=== PATIENT | male | born 1960 | race Caucasian/White ===

== ENCOUNTER 2022-04-24 06:55 | Day surgery (SDC) | payer OTHER ==
[~2022-04-24] VITALS: Ht 175.3 cm; Wt 134.0 kg
[~2022-04-24 06:55] MED LIST: 24 HOUR ALLER15.8 ML NAS; ACETAMINOPHEN325 M1 PO; AMITRIPTYLINE H25 MG PO; BUPRENORPHINE1 EAC2 TD; CLOBETASOL PROP50 GM TOP; CYMBALTA60 MG PO; DOC-Q-LAX TABL1 EACH PO; ENOXAPARIN40 MG/0.4 SUB-Q; FENOFIBRATE134 MG PO; FOLIC ACID1 MG PO; HYDROCODON-ACE1 EAC8 PO; LISINOPRIL20 MG PO; MELOXICAM15 MG PO; METFORMIN HCL500 M2 PO; METHOTREXATE2.5 MG PO; MICROZIDE12.5 MG PO; NIACIN500 M1 PO; NORCO 5-325 TA1 EACH PO; NUCYNTA ER250 MG PO; OXYCODONE HCL5 MG PO
--- NOTE | 2022-04-24 09:32 | NUR ---
04/24/22 0932 Niki Olivier PT TO PACU AWAKE AND ALERT DENIES PAIN AND NAUSEA.
--- NOTE | 2022-04-25 12:36 | OR ---
[facility] [address], [place] [address] Signed DATE OF OPERATION: 04/24/2022 SURGEON: Hollie Jaimes MD PREOPERATIVE DIAGNOSIS: History of tubular adenoma of cecum 2017. POSTOPERATIVE DIAGNOSES: 1. Small flat polyp rectum (excised). 2. Minimal diverticula. PROCEDURE: Total colonoscopy to cecum with cold morcellation polypectomy x1. ANESTHESIA: Intravenous sedation; fentanyl 100 mcg and Versed 10 mg. INDICATION: This 62-year-old white man is a patient of TOAN Quintanilla. He underwent colonoscopy by me in 2017, at which time he was found to have a tubular adenoma of the cecum. He is asymptomatic currently. He has no family history of colon cancer. He is here for surveillance colonoscopy. He understands the risk of bleeding, infection, and perforation. FINDINGS: The prep was good. Complete colonoscopy was undertaken to the cecum without question. He had one small flat polyp of the rectum, which was excised with cold morcellation technique. There were few scattered diverticula, but no other findings of concern. DESCRIPTION OF PROCEDURE: The patient was brought to the endoscopy suite and placed in the lateral decubitus position, given intravenous sedation a point of slurred speech and nystagmus. Digital rectal examination was normal. An Olympus video colonoscope was passed in the rectum and manipulated throughout the colon noting a few diverticula along the way. The scope was ultimately passed to the cecum. The ileocecal valve and appendiceal orifice were normal with no evidence of recurrent or persistent polyp. The scope was then withdrawn and examination throughout showed no sign of abnormality other than a few scattered diverticula. In the rectum, there was an area of mucosal thickening and with narrow band imaging suggestive of a Electronically Signed By: HOLLIE JAIMES MD 04/25/22 1236 PATIENT NAME: PAGE BAÑUELOS OPERATIVE REPORT DATE OF : 60 REPORT #: [id number] PHYSICIAN: HOLLIE JAIMES MD PCP: DIANE MACHADO REPORT IS CONFIDENTIAL AND NOT TO BE RELEASED WITHOUT AUTHORIZATION [facility] [address], [place] [address] Signed flat polyp. It was small. It was excised with cold morcellation technique completely. Further withdrawal showed no other abnormality including retroflexed view. The scope was removed and the patient was taken to the recovery room in good condition. CONCLUDING DIAGNOSIS: Scattered diverticula and small flat rectal polyp. PLAN: Recommend repeat colonoscopy in 5 to 7 years, sooner if clinically indicated. He will return to the ongoing care of TOAN Quintanilla. MD SEBAS Fernandes/CATHY /[id number] cc: TOAN Quintanilla Copies: DIANE MACHADO ~ Electronically Signed By: HOLLIE JAIMES MD 04/25/22 1236 PATIENT NAME: PAGE BAÑUELOS OPERATIVE REPORT DATE OF : 60 REPORT #: [id number] PHYSICIAN: HOLLIE JAIMES MD PCP: DIANE MACHADO REPORT IS CONFIDENTIAL AND NOT TO BE RELEASED WITHOUT AUTHORIZATION
== END 2022-04-24 09:55 | disposition home or self-care (01) ==
LOC: DS 06:55 → OPS 06:55 → DS 07:30 → OPS 08:15 → DS 08:15 → OPS 09:55
PROVIDERS: ATTEND Surgery
PROC: 0DBP8ZX Excision of Rectum, Via Natural or Artificial Opening Endoscopic, Diagnostic (ICD-10-PCS; principal; 2022-04-24 08:15)
DX: Z12.11 Encounter for screening for malignant neoplasm of colon (principal); K62.1 Rectal polyp; K57.30 Diverticulosis of large intestine without perforation or abscess without bleeding; I10 Essential (primary) hypertension; G47.30 Sleep apnea, unspecified; F17.210 Nicotine dependence, cigarettes, uncomplicated; E66.01 Morbid (severe) obesity due to excess calories; G89.28 Other chronic postprocedural pain; L40.9 Psoriasis, unspecified; Z86.010 Personal history of colon polyps; Z96.653 Presence of artificial knee joint, bilateral; Z86.718 Personal history of other venous thrombosis and embolism; Z68.41 Body mass index [BMI] 40.0-44.9, adult; Z79.891 Long term (current) use of opiate analgesic
CPT/HCPCS: 99153; G0500; J0690; J2250; J3010; J7121